=== PATIENT | male | born 1960 | race Caucasian/White ===

== ENCOUNTER → 2020-08-13 | Outpatient (CLI) | payer OTHER ==
--- NOTE | 2020-08-13 08:28 | RAD ---
INDICATION: Reason: ATTN PAROTID GLAND; DISEASE OF SALIVARY GLAND / Spl. Instructions: / History: COMPARISON: None. FINDINGS: Focused ultrasound images are obtained through the left parotid region. There are some small lymph nodes identified within the bilateral parotid region including one on the left measuring 9 x 6 mm with preserved fatty hilum. IMPRESSION: * Nonpathologic appearing lymph nodes are identified within the bilateral parotid gland without a d rainable fluid collection or worrisome mass. Electronically signed by: Travis Carr MD (08/13/2020 8:25 AM) [id number]
== END ==
LOC: US 07:39
PROVIDERS: ATTEND Family Medicine
DX: K11.9 Disease of salivary gland, unspecified (principal)
CPT/HCPCS: 76881

== ENCOUNTER 2021-02-08 11:51 | Emergency (ER) | payer OTHER ==
[~2021-02-08] VITALS: Ht 188 cm; Wt 127.2 kg
--- NOTE | 2021-02-08 14:08 | RAD ---
EXAM: PA and Lateral Views of the Chest DATE: 02/08/2021 1:50 PM INDICATION: Reason: COUGH, SHORTNESS OF BREATH HX ASTHMA, / Spl. Instructions: / History: COMPARISON: No Prior FINDINGS: The heart is not enlarged. Mediastinal and hilar contours are normal. No focal parenchymal airspace opacity. No pleural effusion or pneumothorax. IMPRESSION: 1. No radiographic evidence for acute cardiopulmonary process. Electronically signed by: Al López MD (02/08/2021 2:06 PM) [id number]
--- NOTE | 2021-02-08 14:22 | PHYS DOC ---
Past History Past Medical History: Asthma Past Surgical History: Other Additional Past Surgical Histo: shoulder surgery Alcohol Use: None Adult General Chief Complaint Chief Complaint: SHORTNESS OF BREATH HPI HPI Patient is a 60-year-old male presenting via POV for cough. This has been going on for last 2 weeks. Nothing known makes better or worse. Patient reports he has history of asthma but this is been at baseline, takes no inhalers but admits to taking daily allergy medications specifically Singulair as this typically triggers his asthma. He has had no recent exacerbations or attacks, no recent hospitalizations. Does admit he was seen by his primary care physician near symptom onset and was prescribed an unknown antibiotic which he reports had minimal relief in symptoms. States that he contacted his primary care physician today due to ongoing cough that has since turned productive with clear and yellow sputum, he was subsequently advised to transport to our facility for evaluation. On arrival, patient complains of continued productive cough. Also cites deep left-sided chest pressure that does not radiate. Nothing known makes better or worse. He has been taking all prescribed medications as scheduled. No personal history of cardiac disease, no ongoing tobacco alcohol or illicit drug use or history, no pertinent family history early cardiac disease reported Review of Systems Review of Systems Fourteen body systems of review of systems have been reviewed. See HPI for pertinent positives and negative responses, other stark all other systems are negative, non-pertinent or non-contributory Allergies Allergies Allergies Uncoded Allergies Type Severity Reaction Last Updated Verified PCN Allergy Unknown "bones itch" 02/08/21 Physical Exam Physical Exam Constitutional: Well developed, well nourished, no acute distress, non-toxic ap pearance. HENT: Normocephalic, atraumatic, bilateral external ears normal, oropharynx moist, no oral exudates, nose normal. Eyes: PERRLA, EOMI, conjunctiva normal, no discharge. Neck: Normal range of motion, no tenderness, supple, no stridor. Cardiovascular: Heart rate regular, sinus rhythm, no murmurs rubs or gallops Lungs & Thorax: Bilateral breath sounds clear to auscultation Abdomen: Bowel sounds normal, soft, no tenderness, no masses, no pulsatile masses. Nonsurgical abdomen, no peritoneal signs Skin: Warm, dry, no erythema, no rash. Back: No tenderness, no CVA tenderness. Extremities: No tenderness, no cyanosis, no clubbing, ROM intact, no edema. Neurologic: Alert and oriented X 3, grossly normal motor & sensory function, no focal deficits noted. Psychologic: Affect normal, judgement normal, mood normal. Current Patient Data Vital Signs Vital Signs Date Time Temp Pulse Resp B/P (MAP) Pulse Ox O2 Delivery O2 Flow Rate FiO2 02/08/21 13:22 98.1 111 20 134/105 (115) 97 Room Air Lab Results Laboratory Tests Test 02/08/21 14:10 02/08/21 14:20 White Blood Count 8.5 x10^3/uL Red Blood Count 4.88 x10^6/uL Hemoglobin 15.6 g/dL Hematocrit 45.9 % Mean Corpuscular Volume 94 fL Mean Corpuscular Hemoglobin 32 pg Mean Corpuscular Hemoglobin Concent 34 g/dL Red Cell Distribution Width 13.8 % Platelet Count 293 x10^3/uL Neutrophils (%) (Auto) 57 % Lymphocytes (%) (Auto) 25 % Monocytes (%) (Auto) 12 % Eosinophils (%) (Auto) 5 % Basophils (%) (Auto) 1 % Neutrophils # (Auto) 4.9 x10^3uL Lymphocytes # (Auto) 2.1 x10^3/uL Monocytes # (Auto) 1.0 x10^3/uL Eosinophils # (Auto) 0.4 x10^3/uL Basophils # (Auto) 0.1 x10^3/uL Sodium Level 142 mmol/L Potassium Level 4.1 mmol/L Chloride Level 104 mmol/L Carbon Dioxide Level 25 mmol/L Anion Gap 13 Blood Urea Nitrogen 17 mg/dL Creatinine 1.2 mg/dL Estimated GFR (Cockcroft-Gault) 62.0 Glucose Level 129 mg/dL Calcium Level 9.2 mg/dL Troponin I High Sensitivity 6 ng/L Coronavirus (COVID-19)(PCR) Not detected EKG EKG EKG ordered and interpreted by myself at 1430 hrs. as sinus rhythm at 95 bpm, unremarkable intervals, no axis deviation, no STEMI Radiology/Procedures Radiology/Procedures EXAM: PA and Lateral Views of the Chest DATE: 02/08/2021 1:50 PM INDICATION: Reason: COUGH, SHORTNESS OF BREATH HX ASTHMA, / Spl. Instructions: / History: COMPARISON: No Prior FINDINGS: The heart is not enlarged. Mediastinal and hilar contours are normal. No focal parenchymal airspace opacity. No pleural effusion or pneumothorax. IMPRESSION: 1. No radiographic evidence for acute cardiopulmonary process. Electronically signed by: Al López MD (02/08/2021 2:06 PM) [id number] Heart Score C/O Chest Pain: Yes HEART Score for Chest Pain: HEART Score for Chest Pain Response (Comments) Value History Slighlty/Non-Suspicious 0 ECG Normal 0 Age >45 - < 65 1 Risk Factors 1 or 2 Risk Factors 1 Troponin < Normal Limit 0 Total 2 Risk Factors: Risk Factors: DM, Current or recent (<one month) smoker, HTN, HLP, family history of CAD, obesity. Risk Scores: Risk Factors: DM, Current or recent (<one month) smoker, HTN, HLP, family history of CAD, obesity. Course & Med Decision Making Course & Med Decision Making ABCs unremarkable HPI physical exam and comprehensive ER work-up nonconcerning for any emergent or surgical issues Patient initial complaint was chronic cough status post recent viral infection. He has history of underlying asthma. I disclosed a cough like this might take 2 to 8 weeks after such infection to resolve especially with his history I discussed heart score and other risk stratification measures while in ER setting, patient reporting atypical chest pain but with that said I did disclose this might be an acute presentation of more concerning pathology and so I recommended admission but patient deferred As such, continued supportive care practices advised. He takes Singulair and Zyrtec daily, I discussed utility of Flonase if he has nasal congestion and/or rhinorrhea. Also prescribe patient Tessalon Perles for severe coughing episodes only Strict return precautions discussed with good understanding by patient, all questions and concerns addressed prior to ER departure Dragon Disclaimer Dragon Disclaimer This electronic medical record was generated, in whole or in part, using a voice recognition dictation system. Departure Departure: Impression: Primary Impression: Cough Disposition: HOME / SELF CARE / HOMELESS Condition: STABLE Referrals: JACK MANRIQUEZ MD (PCP) Patient Instructions: Cough, Adult Additional Instructions: You were seen in the Emergency Department for evaluation of a cough. Your chest x-ray was negative for any obvious cardiac/pulmonary etiology, however pathology may still exist. It is likely to be a viral condition, however you should follow up with your primary doctor for further evaluation. Coughing up blood, fever, and shortness of breath are examples of reasons to come back to the emergency department. Please return to the ED if you have new or worrisome symptoms. 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
--- NOTE | 2021-02-08 14:30 | EKG ---
[address] [address] Test Date: 2021-02-08 Test Time: 14:23:58 Pat Name: ANDERS PADGETT Department: Room: Gender: M Box Brander: TAYO : 1960 Requested By: ANDREAS MURILLO Order Number: [id number] Reading MD: Zaheer Benavides MD Measurements Intervals [place] Rate: 95 P: 62 NC: 186 QRS: -15 QRSD: 64 T: 26 QT: 354 QTc: 448 Interpretive Statements SINUS RHYTHM Electronically Signed On 02-10-2021 20:46:00 POCKET CUTTER by Zaheer Benavides MD
[2021-02-08 14:35] LABS: BASO # 0.1 x10^3/uL (0.0-0.2); BASO % 1 % (0-3); EOS # 0.4 x10^3/uL (0.0-0.7); EOS % 5 % (0-3); HEMATOCRIT 45.9 % (39.0-53.0); HEMOGLOBIN 15.6 g/dL (13.0-17.5); LYMPH # 2.1 x10^3/uL (1.0-4.8); LYMPH % 25 % (24-48); MEAN CORPUSCULAR HEMOGLOBIN 32 pg (25-35); MEAN CORPUSCULAR HGB CONC 34 g/dL (31-37); MEAN CORPUSCULAR VOLUME 94 fL (79-100); MONO % 12 % (0-9); NEUT # 4.9 x10^3uL (1.8-7.7); NEUT % 57 % (31-73); PLATELET COUNT 293 x10^3/uL (140-400); RED BLOOD COUNT 4.88 x10^6/uL (4.30-5.70); RED CELL DISTRIBUTION WIDTH 13.8 % (11.5-14.5); WHITE BLOOD COUNT 8.5 x10^3/uL (4.0-11.0)
[2021-02-08 14:40] LABS: CALCIUM 9.2 mg/dL (8.5-10.1); CREATININE 1.2 mg/dL (0.7-1.3); POTASSIUM 4.1 mmol/L (3.5-5.1)
[2021-02-08] MEDS ORDERED: BENZ200C47 PO (15:29)
[2021-02-08 15:36] VITALS: BP 117/67
== END 2021-02-08 15:38 | disposition home or self-care (01) ==
LOC: ER 11:51
DX: R05.9 Cough, unspecified (principal); J45.909 Unspecified asthma, uncomplicated; Z20.822 Contact with and (suspected) exposure to COVID-19
CPT/HCPCS: 36415; 71046; 80048; 84484; 85025; 93005; 99284; C9803; U0003

== ENCOUNTER 2021-02-27 17:50 | Emergency (ER) | payer OTHER ==
[~2021-02-27] VITALS: Ht 188 cm; Wt 120.6 kg
[~2021-02-27 17:50] MED LIST: BENZ200C47 PO
[2021-02-27] MEDS ORDERED: IV NORMAL SALINE 1,000ML 1,000 ML IV SCH (18:15)
--- NOTE | 2021-02-27 18:18 | PHYS DOC ---
Past History Past Medical History: Asthma (LILLIE STEVENS APRN) Past Surgical History: Other Additional Past Surgical Histo: shoulder surgery (LILLIE STEVENS APRN) Alcohol Use: None (LILLIE STEVENS APRN) General Adult EDM: Chief Complaint: FEVER HPI: HPI: Patient is a 60-year-old male who presents to the emergency department for fever and a productive cough for 2 months. He reports shortness of breath is worse with exertion, fatigue, nausea, vomiting, diarrhea. He reports that he begins coughing which causes him to gag and vomit. Patient was seen in this emergency department earlier this month and had negative Covid testing. Patient states that he is on an antibiotic for sinusitis. Patient states his temperature was 102 degrees today. He is afebrile in the emergency department. He has a history of asthma. He denies nausea currently, sick exposures, chest pain, urinary symptoms, blood in his stools or vomit. (LILLIE STEVENS APRN) Review of Systems: Review of Systems: 14 body systems of the review of systems have been reviewed. See HPI for pertinent positive and negative responses, otherwise all other systems are negative, nonpertinent or noncontributory (LILLIE STEVENS APRN) Allergies: Allergies: Allergies Coded Allergies Type Severity Reaction Last Updated Verified Penicillins Allergy Unknown 02/27/21 Yes (LILLIE STEVENS APRN) Physical Exam: PE: Constitutional: Well developed, well nourished, no acute distress, non-toxic appearance. [] HENT: Normocephalic, atraumatic, bilateral external ears normal, oropharynx moist, no oral exudates, nose normal. [] Eyes: PERRL, EOMI, conjunctiva normal, no discharge. [] Neck: Normal range of motion, no tenderness, supple, no stridor. [] Cardiovascular:Heart rate tachycardia rhythm, no murmur [] Lungs & Thorax: Bilateral breath sounds clear to auscultation [] Abdomen: Bowel sounds normal, soft, no tenderness, no masses, no pulsatile masses. [] Skin: Warm, dry, no erythema, no rash. [] Back: Normal range of motion Extremities: No tenderness, no cyanosis, no clubbing, ROM intact, no edema. [] Neurologic: Alert and oriented X 3, normal motor function, normal sensory function, no focal deficits noted. [] Psychologic: Affect normal, judgement normal, mood normal. [] (LILLIE STEVENS APRN) Current Patient Data: Labs: Laboratory Tests Test 02/27/21 18:36 02/27/21 18:37 White Blood Count 5.9 x10^3/uL Red Blood Count 4.63 x10^6/uL Hemoglobin 14.8 g/dL Hematocrit 42.6 % Mean Corpuscular Volume 92 fL Mean Corpuscular Hemoglobin 32 pg Mean Corpuscular Hemoglobin Concent 35 g/dL Red Cell Distribution Width 13.6 % Platelet Count 187 x10^3/uL Neutrophils (%) (Auto) 64 % Lymphocytes (%) (Auto) 23 % Monocytes (%) (Auto) 12 % Eosinophils (%) (Auto) 1 % Basophils (%) (Auto) 0 % Neutrophils # (Auto) 3.7 x10^3uL Lymphocytes # (Auto) 1.4 x10^3/uL Monocytes # (Auto) 0.7 x10^3/uL Eosinophils # (Auto) 0.1 x10^3/uL Basophils # (Auto) 0.0 x10^3/uL Sodium Level 140 mmol/L Potassium Level 4.1 mmol/L Chloride Level 104 mmol/L Carbon Dioxide Level 23 mmol/L Anion Gap 13 Blood Urea Nitrogen 17 mg/dL Creatinine 1.2 mg/dL Estimated GFR (Cockcroft-Gault) 62.0 BUN/Creatinine Ratio 14 Glucose Level 185 mg/dL Calcium Level 8.4 mg/dL Total Bilirubin 0.8 mg/dL Aspartate Amino Transf (AST/SGOT) 35 U/L Alanine Aminotransferase (ALT/SGPT) 32 U/L Alkaline Phosphatase 87 U/L Total Protein 7.0 g/dL Albumin 3.3 g/dL Albumin/Globulin Ratio 0.9 Influenza Type A (Rapid) Negative Influenza Type B (Rapid) Negative Current Medications Medications (Trade) Dose Ordered Sig/Gladys Route PRN Reason Start Time Stop Time Status Last Admin Dose Admin Sodium Chloride 1,000 ml @ 1,000 mls/hr Q1H IV 02/27/21 18:15 02/27/21 19:14 DC 02/27/21 18:35 Vital Signs: Vital Signs Date Time Temp Pulse Resp B/P (MAP) Pulse Ox O2 Delivery O2 Flow Rate FiO2 02/27/21 18:05 98.7 114 24 129/84 (99) 93 Room Air (LILLIE STEVENS PUMP SERVICER) EKG: EKG: [] Performed by ER staff and 1939 shows sinus rhythm rate of 93, QTC 440, no STEMI read by Dr. Topete (LILLIE STEVENS APRN) Radiology/Procedures: Radiology/Procedures: []PROCEDURE: PORTABLE CHEST 1V AP chest. HISTORY: Short of air, cough, history of asthma AP view was taken of the chest. Patient's not taken a deep inspiration. There is no effusion. There are no confluent infiltrates. IMPRESSION: 1. No acute chest disease. Electronically signed by: Brian Clemons MD (02/27/2021 6:25 PM) [facility] DICTATED AND SIGNED BY: BRIAN CLEMONS MD DATE: 02/27/211824 CC: JACK MANRIQUEZ MD; LILLIE STEVENS APRN ~MTH0 0 (LILLIE STEVENS APRN) Heart Score: C/O Chest Pain: N/A Risk Factors: Risk Factors: DM, Current or recent (<one month) smoker, HTN, HLP, family history of CAD, obesity. Risk Scores: Score 0 - 3: 2.5% MACE over next 6 weeks - Discharge Home Score 4 - 6: 20.3% MACE over next 6 weeks - Admit for Clinical Observation Score 7 - 10: 72.7% MACE over next 6 weeks - Early Invasive Strategies (LILLIE STEVENS APRN) Course & Med Decision Making: Course & Med Decision Making Pertinent Labs and Imaging studies reviewed. (See chart for details) [] Presents to the emergency department today for multiple complaints including fever, productive cough, nausea, vomiting, diarrhea, shortness of breath x2 months. Patient is currently on antibiotics for sinusitis but cannot member the name of medication, this is possibly contributing to his diarrhea. Patient is not reporting any nausea or vomiting currently. Work-up in the ER consisted of blood work, chest x-ray. Patient is mildly tachycardic in the emergency department and therefore was treated with a liter of normal saline. Patient's blood work was unremarkable. Patient had negative influenza testing. Chest x- ray showed no acute findings. asthma treated with steroid in ER. Patient advised to follow-up with his primary care provider. Patient's vital signs have improved and he is no longer tachycardic, no hypoxia noted, afebrile in the ER. Patient was road tested and did not become hypoxic, he states that he is most short of air with laying flat so he was laid flat for several minutes and his [id number] did not drop and he did not become hypoxic. Nonlabored breathing. Patient was discharged home with albuterol inhaler, cough medication. I discussed with patient all findings and diagnostic testing as well as the need to follow-up with PCP for further evaluation and treatment or return to the ER if any new or worsening symptoms. Strict return precautions were also discussed at length. Patient voiced understanding and agreement with the plan. Patient is hemodynamically stable at the time of disposition. (LILLIE STEVENS APRN) Dragon Disclaimer: Dragon Disclaimer: This electronic medical record was generated, in whole or in part, using a voice recognition dictation system. (LILLIE STEVENS APRN) Departure Departure: Impression: Primary Impression: Person under investigation for COVID-19 Disposition: HOME / SELF CARE / HOMELESS Condition: GOOD Referrals: JACK MANRIQUEZ MD (PCP) Patient Instructions: Cough, Adult, [id number] Additional Instructions: You were seen in the emergency department today for fever, cough, shortness of breath. Your blood work was unremarkable. Your chest x-ray showed no acute findings. Your influenza test was negative. We tested you in the emergency department for COVID-19 you will be notified of those results when they become available in approximately 2 days, please self isolate until you receive these results. Increase your fluids and rest. Take Tylenol and ibuprofen for your pain or fevers. You are being discharged home with albuterol inhaler that you can use as needed for shortness of breath. You are also being discharged home with a cough medication. I would advise you to purchase a pulse oximeter and monitor your oxygen saturations at home. Please return to the emergency department if your oxygen saturation drops below 90%. Please follow-up with your primary care provider tomorrow regarding your ER visit. Please return to the emergency department if you develop worsening of your shortness of breath, chest pain, high fevers refractory to treatment, intractable nausea or vomiting, weakness. Scripts Benzonatate (BENZONATATE) 200 Mg Capsule 1 CAP PO PRN TID PRN for cough for 7 Days, #21 CAP 0 Refills Prov: RODNEYLILLIE Holloway PUMP SERVICER 02/27/21 Albuterol Sulfate (PROAIR HFA INHALER) 8.5 Gm Hfa.aer.ad 2 PUFF IH PRN Q4-6HRS PRN for wheezing for 21 Days, #1 INHALER 0 Refills as needed for wheezing Prov: RODNEYLILLIE Holloway PUMP SERVICER 02/27/21 Dragon Disclaimer This chart was dictated in whole or in part using Voice Recognition software in a busy, high-work load, and often noisy Emergency Department environment. It may contain unintended and wholly unrecognized errors or omissions. (ROSALES TOPETE MD) Attending Signature Attending Signature I have participated in the care of this patient and I have reviewed and agree with all pertinent clinical information above including history, exam, and recommendations. (ROSALES TOPETE MD) LILLIE STEVENS PUMP SERVICER Feb 27, 2021 18:17 ROSALES TOPETE MD Feb 28, 2021 19:04
--- NOTE | 2021-02-27 18:28 | RAD ---
AP chest. HISTORY: Short of air, cough, history of asthma AP view was taken of the chest. Patient's not taken a deep inspiration. There is no effusion. There a re no confluent infiltrates. IMPRESSION: 1. No acute chest disease. Electronically signed by: Brian Clemnos MD (02/27/2021 6:25 PM) [facility]
[2021-02-27 18:57] LABS: BASO % 0 % (0-3); EOS # 0.1 x10^3/uL (0.0-0.7); EOS % 1 % (0-3); HEMATOCRIT 42.6 % (39.0-53.0); HEMOGLOBIN 14.8 g/dL (13.0-17.5); LYMPH # 1.4 x10^3/uL (1.0-4.8); LYMPH % 23 % (24-48); MEAN CORPUSCULAR HEMOGLOBIN 32 pg (25-35); MEAN CORPUSCULAR HGB CONC 35 g/dL (31-37); MEAN CORPUSCULAR VOLUME 92 fL (79-100); MONO # 0.7 x10^3/uL (0.0-1.1); MONO % 12 % (0-9); NEUT # 3.7 x10^3uL (1.8-7.7); NEUT % 64 % (31-73); PLATELET COUNT 187 x10^3/uL (140-400); RED BLOOD COUNT 4.63 x10^6/uL (4.30-5.70); RED CELL DISTRIBUTION WIDTH 13.6 % (11.5-14.5); WHITE BLOOD COUNT 5.9 x10^3/uL (4.0-11.0)
[2021-02-27 19:06] LABS: CALCIUM 8.4 mg/dL (8.5-10.1); CREATININE 1.2 mg/dL (0.7-1.3); POTASSIUM 4.1 mmol/L (3.5-5.1)
[2021-02-27 19:10] LABS: INFLUENZA A PATIENT NEGATIVE (NEGATIVE); INFLUENZA B PATIENT NEGATIVE (NEGATIVE)
[2021-02-27 19:12] LABS: ALBUMIN 3.3 g/dL (3.4-5.0); ALBUMIN/GLOBULIN RATIO 0.9 (1.0-1.7); TOTAL BILIRUBIN 0.8 mg/dL (0.2-1.0)
[2021-02-27] MEDS ORDERED: ALBU2.5V8 IH (19:30)
[2021-02-27] MEDS ORDERED: methylPREDNISolone SOD SUCC PF 125 MG/2 ML VIAL. IV ONE (19:30)
[2021-02-27] MEDS ORDERED: PRED20TA PO (19:30)
[2021-02-27] MEDS ORDERED: BENZ200C47 PO (19:30)
[2021-02-27 20:03] VITALS: BP 131/78
[2021-02-27 20:05] LABS: BACTERIA,URINE 0 /HPF (0-FEW); BILIRUBIN,URINE SMALL (NEG); CLARITY,URINE CLEAR; COLOR,URINE YELLOW; GLUCOSE,URINE NEG (NEG); NITRITE,URINE NEG (NEG); RBC,URINE 0 /HPF (0-2); SQUAMOUS EPITHELIAL CELL,UR OCC /LPF; UROBILINOGEN,URINE 0.2 mg/dL (0.2 mg/dL); WBC,URINE OCC /HPF (0-4)
--- NOTE | 2021-02-28 02:46 | EKG ---
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
== END 2021-02-27 20:29 | disposition home or self-care (01) ==
LOC: ER 17:50
DX: U07.1 COVID-19 (principal); J45.909 Unspecified asthma, uncomplicated; Z88.0 Allergy status to penicillin
CPT/HCPCS: 71045; 80053; 81001; 85025; 87804; 93005; 96361; 96374; 99285; C9803; J2930; J7030; U0003

== ENCOUNTER 2021-03-18 06:15 | Emergency (ER) | payer MEDICARE, OTHER ==
[~2021-03-18] VITALS: Ht 188 cm; Wt 122.0 kg
[~2021-03-18 06:15] MED LIST changes: +ALBU2.5V8 IH; +PRED20TA PO
--- NOTE | 2021-03-18 06:50 | EKG ---
[address] [address] Test Date: 2021-03-18 Test Time: 06:31:03 Pat Name: ANDERS PADGETT Department: Room: Gender: M Senior Wealth Advisor: ??? 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
--- NOTE | 2021-03-18 06:55 | PHYS DOC ---
Past History Past Medical History: Asthma Past Surgical History: Other Additional Past Surgical Histo: shoulder surgery Alcohol Use: None General Adult EDM: Chief Complaint: SHORTNESS OF BREATH HPI: HPI: 60-year-old male presents with continued shortness of breath. Patient has been seen in this emergency room few times. He was diagnosed with COVID-19 at one point about a month ago. Patient presents this morning because he has a persistent cough that has led to central chest pain and shortness of breath. He tells me that he is coughing so hard he has abdominal cramping. He has tried aeje-pps-fhocait medications as well as Tessalon Perles. He is not sure what else to do. Denies fever or chills. Review of Systems: Review of Systems: Constitutional: Denies fever or chills Eyes: Denies change in visual acuity HENT: Denies nasal congestion or sore throat Respiratory: Cough with shortness of breath Cardiovascular: Chest pain GI: Denies abdominal pain, nausea, vomiting, bloody stools or diarrhea : Denies dysuria Musculoskeletal: Denies back pain or joint pain Integument: Denies rash Neurologic: Denies headache, focal weakness or sensory changes Endocrine: Denies polyuria or polydipsia Lymphatic: Denies swollen glands Psychiatric: Denies depression or anxiety Allergies: Allergies: Allergies Coded Allergies Type Severity Reaction Last Updated Verified Penicillins Allergy Unknown 02/27/21 Yes Physical Exam: PE: Constitutional: Well developed, well nourished, obese, no acute distress, non- toxic appearance. [] HENT: Normocephalic, atraumatic, bilateral external ears normal, oropharynx moist, no oral exudates, nose normal. [] Eyes: PERRLA, EOMI, conjunctiva normal, no discharge. [] Neck: Normal range of motion, no tenderness, supple, no stridor. [] Cardiovascular: Heart rate regular rhythm, no murmur [] Lungs & Thorax: Bilateral breath sounds clear to auscultation [] Abdomen: Bowel sounds normal, soft, no tenderness, no masses, no pulsatile masses. [] Skin: Warm, dry, no erythema, no rash. [] Back: No tenderness, no CVA tenderness. [] Extremities: No tenderness, no cyanosis, no clubbing, ROM intact, no edema. [] Neurologic: Alert and oriented X 3, normal motor function, normal sensory function, no focal deficits noted. [] Psychologic: Affect normal, judgement normal, mood normal. [] Current Patient Data: Vital Signs: Vital Signs Date Time Temp Pulse Resp B/P (MAP) Pulse Ox O2 Delivery O2 Flow Rate FiO2 03/18/21 06:26 98.0 120 24 131/78 (95) 96 EKG: EKG: Sinus rhythm, rate 112, leftward axis, no ST elevation or depression. [] Radiology/Procedures: Radiology/Procedures: [] Impressions: CTA chest with contrast dated 03/18/2021. COMPARISON: None. Clinical data indication: Tachycardia and shortness of breath. Covid 19. TECHNIQUE: Contiguous axial imaging the chest performed following the bolus administration of 150 cc Omnipaque 350. Initial injection was missed timed and repeat injection was performed. Thin cut coronal MIPS reconstructions using PE protocol One or more of the following individualized dose reduction techniques were uti lized for this examination: 1. Automated exposure control 2. Adjustment of the mA and/or kV according to patient size 3. Use of iterative reconstruction technique FINDINGS: Study is somewhat limited due to diminished contrast bolus. No evidence of central, main lobar or proximal segmental pulmonary embolus. Distal segmental and subsegmental branches are not well evaluated based on technique. Heart size is within normal limits. No pericardial effusion. Coronary artery calcifications. There are mildly enlarged right paratracheal, subcarinal and bilateral hilar lymph nodes measuring up to 1.4 cm short axis. No axillary or supraclavicular lymphadenopathy. Thyroid gland is unremarkable. Central airways are patent. Patchy groundglass opacity at the dependent lower lobes with mild peripheral patchy groundglass density in the right upper lobe. No significant pleural effusion. Limited images of the upper abdomen are unremarkable. No acute bony abnormality. Multilevel spondylosis. IMPRESSION: 1. Limited exam. No evidence of central, lobar or proximal segmental pulmonary embolus. Distal segmental and subsegmental branches are not well evaluated based on technique. 2. Mild bilateral airspace disease, likely related to history of Covid 19 pneumonitis. 3. Mild mediastinal and bilateral hilar lymphadenopathy, likely reactive. 4. Coronary artery calcifications. Electronically signed by: Adriano Ho MD (03/18/2021 8:05 AM) [facility] DICTATED AND SIGNED BY: ADRIANO HO MD DATE: 03/18/21 0753 CC: JACK MANRIQUEZ MD; LIZA BRUNSON DO ~MTH0 0 Heart Score: C/O Chest Pain: Yes HEART Score for Chest Pain: HEART Score for Chest Pain Response (Comments) Value History Slighlty/Non-Suspicious 0 ECG Nonspecific Repolarizatio 1 Age >45 - < 65 1 Risk Factors 1 or 2 Risk Factors 1 Troponin < Normal Limit 0 Total 3 Risk Factors: Risk Factors: DM, Current or recent (<one month) smoker, HTN, HLP, family history of CAD, obesity. Risk Scores: Score 0 - 3: 2.5% MACE over next 6 weeks - Discharge Home Score 4 - 6: 20.3% MACE over next 6 weeks - Admit for Clinical Observation Score 7 - 10: 72.7% MACE over next 6 weeks - Early Invasive Strategies Course & Med Decision Making: Course & Med Decision Making Pertinent Labs and Imaging studies reviewed. (See chart for details) The patient's labs are unremarkable. His CT angiogram of the chest shows no pulmonary embolus. There is some evidence of bilateral infiltrates consistent with history of COVID-19. I will discharge the patient with guaifenesin codeine cough syrup and supportive care. He is stable for discharge at this time. [] Dragon Disclaimer: Dragon Disclaimer: This electronic medical record was generated, in whole or in part, using a voice recognition dictation system. Departure Departure: Impression: Primary Impression: Pneumonia due to COVID-19 virus Disposition: HOME / SELF CARE / HOMELESS Condition: STABLE Referrals: JACK MANRIQUEZ MD (PCP) Patient Instructions: Pneumonia, Adult, Gaip-af-Tfug Scripts Guaifenesin/Codeine Phosphate (GUAIFENESIN-CODEINE SYRUP) 118 Ml Liquid 5 ML PO Q6HRS PRN for COUGH, #120 ML Prov: LIZA BRUNSON DO 03/18/21 LIZA BRUNSON DO Mar 18, 2021 06:55
[2021-03-18] MEDS ORDERED: IOHEXOL 350 MG/ML 100 ML VIAL. IV ONE (07:15)
[2021-03-18] MEDS ORDERED: IV NORMAL SALINE 1,000ML 1,000 ML IV ONE (07:15)
[2021-03-18 07:27] LABS: BASO # 0.1 x10^3/uL (0.0-0.2); BASO % 1 % (0-3); EOS # 0.7 x10^3/uL (0.0-0.7); EOS % 9 % (0-3); HEMATOCRIT 41.1 % (39.0-53.0); LYMPH # 1.4 x10^3/uL (1.0-4.8); LYMPH % 18 % (24-48); MEAN CORPUSCULAR HEMOGLOBIN 32 pg (25-35); MEAN CORPUSCULAR HGB CONC 34 g/dL (31-37); MEAN CORPUSCULAR VOLUME 93 fL (79-100); MONO # 0.8 x10^3/uL (0.0-1.1); MONO % 10 % (0-9); NEUT % 62 % (31-73); PLATELET COUNT 231 x10^3/uL (140-400); RED BLOOD COUNT 4.41 x10^6/uL (4.30-5.70); RED CELL DISTRIBUTION WIDTH 13.9 % (11.5-14.5)
[2021-03-18 07:36] LABS: CREATININE 1.1 mg/dL (0.7-1.3); GFR 68.5; POTASSIUM 4.4 mmol/L (3.5-5.1)
[2021-03-18 07:41] LABS: ALBUMIN 3.6 g/dL (3.4-5.0); ALBUMIN/GLOBULIN RATIO 1.3 (1.0-1.7); TOTAL BILIRUBIN 0.6 mg/dL (0.2-1.0); TOTAL PROTEIN 6.3 g/dL (6.4-8.2)
[2021-03-18] MEDS ORDERED: guaiFENesin/CODEINE 100mg/10mg 5 ML LIQUID PO STA (07:45)
--- NOTE | 2021-03-18 08:06 | RAD ---
Exam Date: 03/18/2021 7:45 AM XR CHEST 1V Indication: Reason: SHORTNESS OF BREATH, TACHYCARDIA, COVID X 4 WEEKS AGO, LOW 02 / Spl. Instructions : / History: . Comparison: February 27, 2021 FINDINGS/ IMPRESSION: Mild right basilar subsegmental atelectasis and/or scarring persists. The cardiac silhouette and pulmonary vasculature are within normal limits. There is no pleural effusion or pneumothorax. The visualized osseous structures are intact. Electronically signed by: Chapo Martin MD (03/18/2021 8:03 AM) [facility]
--- NOTE | 2021-03-18 08:08 | RAD ---
CTA chest with contrast dated 03/18/2021. COMPARISON: None. Clinical data indication: Tachycardia and shortness of breath. Covid 19. TECHNIQUE: Contiguous axial imaging the chest performed following the bolus administration of 150 cc Omnipaque 3 50. Initial injection was missed timed and repeat injection was performed. Thin cut coronal MIPS jennifer nstructions using PE protocol One or more of the following individualized dose reduction techniques were utilized for this examinat ion: 1. Automated exposure control 2. Adjustment of the mA and/or kV according to patient size 3. Use of iterative reconstruction technique FINDINGS: Study is somewhat limited due to diminished contrast bolus. No evidence of central, main lobar or pro ximal segmental pulmonary embolus. Distal segmental and subsegmental branches are not well evaluated based on technique. Heart size is within normal limits. No pericardial effusion. Coronary artery calcifications. There ar e mildly enlarged right paratracheal, subcarinal and bilateral hilar lymph nodes measuring up to 1.4 cm short axis. No axillary or supraclavicular lymphadenopathy. Thyroid gland is unremarkable. Central airways are patent. Patchy groundglass opacity at the dependent lower lobes with mild periphe ral patchy groundglass density in the right upper lobe. No significant pleural effusion. Limited images of the upper abdomen are unremarkable. No acute bony abnormality. Multilevel spondylos is. IMPRESSION: 1. Limited exam. No evidence of central, lobar or proximal segmental pulmonary embolus. Distal segmen jose a and subsegmental branches are not well evaluated based on technique. 2. Mild bilateral airspace disease, likely related to history of Covid 19 pneumonitis. 3. Mild mediastinal and bilateral hilar lymphadenopathy, likely reactive. 4. Coronary artery calcifications. Electronically signed by: Raji Ho MD (03/18/2021 8:05 AM) [facility]
[2021-03-18] MEDS ORDERED: GUAI118L13 PO (08:18)
[2021-03-18 08:25] VITALS: BP 150/84
== END 2021-03-18 08:32 | disposition home or self-care (01) ==
LOC: ER 06:15
DX: U07.1 COVID-19 (principal); J12.82 Pneumonia due to coronavirus disease 2019; J45.909 Unspecified asthma, uncomplicated; Z88.0 Allergy status to penicillin
CPT/HCPCS: 36415; 71045; 71275; 80053; 84484; 85025; 93005; 96360; 99285; J7030; Q9967

== ENCOUNTER 2021-03-26 00:49 | Emergency (ER) | payer MEDICARE ==
[~2021-03-26] VITALS: Ht 188 cm; Wt 122.0 kg
[~2021-03-26 00:49] MED LIST changes: +GUAI118L13 PO
--- NOTE | 2021-03-26 01:10 | PHYS DOC ---
Past History Past Medical History: Asthma Past Medical History COVID Infection Past Surgical History: No Surgical History Additional Past Surgical Histo: shoulder surgery Alcohol Use: None General Adult EDM: Chief Complaint: RAPID HEART RATE HPI: HPI: ".. I was having really fast heart.rate.. I think the nurse scared me out of it..." Patient is a 60 year old male who presents with above hx and complaints of dyspnea and tachycardia. Patient does drink a pot of coffee today. No other illicit drugs. No other history energy drinks. Patient did have COVID in February. Patient does have a family history of DVTs and coagulopathy. Patient himself has never had a DVT or pulmonary embolism. Patient denies any cardiac disorders. Patient is longstanding diabetic, and a history of asthma.. Pt. follows with Dr. Wyatt. Review of Systems: Review of Systems: Constitutional: Denies fever or chills Eyes: Denies change in visual acuity HENT: Denies nasal congestion or sore throat Respiratory: Hx. of non- productive cough Cardiovascular: Complains of tachycardia GI: Denies abdominal pain, nausea, vomiting, bloody stools or diarrhea : Denies dysuria Musculoskeletal: Denies back pain or joint pain Integument: Denies rash Neurologic: Denies headache, focal weakness or sensory changes Endocrine: Denies polyuria or polydipsia Lymphatic: Denies swollen glands Psychiatric: Denies depression or anxiety Family History: Family History: Coagulopathy with mother Current Medications: Current Meds: See nursing for home meds Allergies: Allergies: Allergies Coded Allergies Type Severity Reaction Last Updated Verified Penicillins Allergy Unknown 02/27/21 Yes Physical Exam: PE: Constitutional: no acute distress, non-toxic appearance. [] HENT: Normocephalic, atraumatic, bilateral external ears normal, oropharynx moist, no oral exudates, nose normal. [] Eyes: PERRLA, EOMI, conjunctiva normal, no discharge. [] Neck: Normal range of motion, no tenderness, supple, no stridor. [] Cardiovascular: Tachycardia heart rate regular rhythm, no murmur [] Lungs & Thorax: Bilateral breath sounds apex on auscultation [] Abdomen: Bowel sounds normal, soft, no tenderness, no masses, no pulsatile masses. [Port for diabetic right lower abdomen Skin: Warm, dry, no erythema, no rash. [] Back: No tenderness, no CVA tenderness. [] Extremities: No tenderness, no cyanosis, no clubbing, ROM intact, no edema. No cording appreciated Neurologic: Alert and oriented X 3, normal motor function, normal sensory func tion, no focal deficits noted. [] Psychologic: Affect anxious, judgement normal, mood normal. [] Current Patient Data: Vital Signs: Vital Signs Date Time Temp Pulse Resp B/P (MAP) Pulse Ox O2 Delivery O2 Flow Rate FiO2 03/26/21 00:59 97.9 126 26 127/77 (94) 95 Room Air EKG: EKG: My interpretation EKG shows a sinus tachycardia 117 bpm. Time of EKG is 109 hours. Does have some mild left axis changes. But no findings acute STEMI of contralateral changes [] Radiology/Procedures: Radiology/Procedures: [[place] [address] IMAGING REPORT Signed PATIENT: ANDERS PADGETT ACCOUNT: [id number] : 1960 LOCATION: ER AGE: 60 SEX: M EXAM STATUS: REG ER ORD. PHYSICIAN: ROSALES FERMIN MD REASON: Tachy, dyspnea, elev. D-dimerm, Hx.COVID Omni 350 100cc PROCEDURE: CT ANGIOGRAPHY CHEST CTA chest with contrast dated 03/26/2021. COMPARISON: 03/18/2021 CLINICAL INDICATION: Elevated d-dimer and dyspnea. Possible pulmonary embolus. Covid 19. TECHNIQUE: Contiguous axial imaging the chest performed following the intravenous demonstration of 100 cc Omnipaque 350. Study was performed as dedicated PE protocol with thin cut coronal MIPS 3-D reconstruction. One or more of the following individualized dose reduction techniques were utilized for this examination: 1. Automated exposure control 2. Adjustment of the mA and/or kV according to patient size 3. Use of iterative reconstruction technique. FINDINGS: Contrast bolus is adequate. No evidence of central, lobar or segmental pulmonary embolus. Subsegmental branches are not well evaluated based on technique. Heart size within normal limits. No pericardial effusion. Coronary artery calcifications. Mildly enlarged subcarinal lymph node measuring 1.1 cm short axis. There are also borderline enlarged prevascular and bilateral hilar lymph nodes. No axillary or supraclavicular lymphadenopathy. Thyroid gland is unremarkable. Central airways are patent. Mild patchy groundglass opacity in the bilateral lower lobes. There is also minimal groundglass opacity in the right upper lobe. No pleural effusion. No pneumothorax. Findings are improved from prior study. Limited images of the upper abdomen are unremarkable. No acute bony abnormality. Multilevel spondylosis. IMPRESSION: 1. No evidence of central, lobar or segmental pulmonary embolus. 2. Mild improvement in bilateral airspace disease, possibly related to history of Covid 19 pneumonitis. 3. Mild mediastinal and bilateral hilar lymphadenopathy, likely reactive. Electronically signed by: Raji Ho MD (03/26/2021 3:23 AM) [facility] DICTATED AND SIGNED BY: RAJI HO MD DATE: 03/26/21318 CC: JACK WYATT MD; ROSALES FERMIN MD ~MTH0 0 [facility] [address] [place] [id number] IMAGING REPORT Signed PATIENT: ANDERS PADGETT ACCOUNT: [id number] : 1960 LOCATION: ER AGE: 60 SEX: M EXAM STATUS: REG ER ORD. PHYSICIAN: ROSALES FERMIN MD REASON: tachy PROCEDURE: PORTABLE CHEST 1V Single view chest dated 03/26/2021 1:53 AM: COMPARISON: 03/18/2021 Clinical Indication: Tachycardia. Findings: Single upright portable exam of the chest was performed. Heart size and mediastinal contours are within normal limits. Lungs are clear. No consolidation or pleural effusion. No pneumothorax. There are some prominent perihilar linear markings, unchanged. IMPRESSION: No acute radiographic abnormality. Stable findings compared to 03/18/2021. Electronically signed by: Raji Ho MD (03/26/2021 1:54 AM) [facility] DICTATED AND SIGNED BY: RAJI HO MD DATE: 03/26/21152 CC: JACK WYATT MD; ROSALES FERMIN MD ~MTH0 0 ] IMAGING REPORT Signed PATIENT: ANDERS APDGETT ACCOUNT: [id number] : 1960 LOCATION: ER AGE: 60 SEX: M EXAM STATUS: REG ER ORD. PHYSICIAN: ROSALES FERMIN MD REASON: tachy PROCEDURE: PORTABLE CHEST 1V Single view chest dated 03/26/2021 1:53 AM: COMPARISON: 03/18/2021 Clinical Indication: Tachycardia. Findings: Single upright portable exam of the chest was performed. Heart size and mediastinal contours are within normal limits. Lungs are clear. No consolidation or pleural effusion. No pneumothorax. There are some prominent perihilar linear markings, unchanged. IMPRESSION: No acute radiographic abnormality. Stable findings compared to 03/18/2021. Electronically signed by: Raji Ho MD (03/26/2021 1:54 AM) [facility] [place] DICTATED AND SIGNED BY: RAJI HO MD DATE: 03/26/21 0153 CC: JACK WYATT MD; ROSALES FERMIN MD ~MTH0 0 Heart Score: C/O Chest Pain: No HEART Score for Chest Pain: HEART Score for Chest Pain Response (Comments) Value History Slighlty/Non-Suspicious 0 ECG Nonspecific Repolarizatio 1 Age >45 - < 65 1 Risk Factors 1 or 2 Risk Factors 1 Total 3 Risk Factors: Risk Factors: DM, Current or recent (<one month) smoker, HTN, HLP, family history of CAD, obesity. Risk Scores: Score 0 - 3: 2.5% MACE over next 6 weeks - Discharge Home Score 4 - 6: 20.3% MACE over next 6 weeks - Admit for Clinical Observation Score 7 - 10: 72.7% MACE over next 6 weeks - Early Invasive Strategies Course & Med Decision Making: Course & Med Decision Making Pertinent Labs and Imaging studies reviewed. (See chart for details) Increase breathing treatments to 4 x day. MDI or nebulizer. Take Prednisone 50 mg daily x 5 days. Follow up with primary. Push fluids. Take daily aspirin. Follow-up with Dr. Wyatt. Consider outpatient stress testing. Return if any concerns. Impression: 1.Tachycardia 2. Hx. COVID infection 02/26 3. DM 4. HTN Hx. 5. Asthma Hx [] Dragon Disclaimer: Dragon Disclaimer: This electronic medical record was generated, in whole or in part, using a voice recognition dictation system. Departure Departure: Referrals: JACK WYATT MD (PCP) Scripts Prednisone (PREDNISONE) 50 Mg Tablet 50 MG PO DAILY for reactive airway for 5 Days, #5 TAB Prov: ROSALES FERMIN MD 03/26/21 [place] Disclaimer This chart was dictated in whole or in part using Voice Recognition software in a busy, high-work load, and often noisy Emergency Department environment. It may contain unintended and wholly unrecognized errors or omissions. Dragon Disclaimer This chart was dictated in whole or in part using Voice Recognition software in a busy, high-work load, and often noisy Emergency Department environment. It may contain unintended and wholly unrecognized errors or omissions. Dragon Disclaimer This chart was dictated in whole or in part using Voice Recognition software in a busy, high-work load, and often noisy Emergency Department environment. It may contain unintended and wholly unrecognized errors or omissions. ROSALES FERMIN MD Mar 26, 2021 01:10
[2021-03-26] MEDS ORDERED: ALBUTEROL SULFATE 8GM INHALER. INH ONE (01:30)
--- NOTE | 2021-03-26 01:57 | RAD ---
Single view chest dated 03/26/2021 1:53 AM: COMPARISON: 03/18/2021 Clinical Indication: Tachycardia. Findings: Single upright portable exam of the chest was performed. Heart size and mediastinal contours are with in normal limits. Lungs are clear. No consolidation or pleural effusion. No pneumothorax. There are s ome prominent perihilar linear markings, unchanged. IMPRESSION: No acute radiographic abnormality. Stable findings compared to 03/18/2021. Electronically signed by: Raji Ho MD (03/26/2021 1:54 AM) [facility]
[2021-03-26] MEDS ORDERED: IV RINGERS SOLUTION,LACTATED 1,000 ML IV SCH (02:00)
[2021-03-26 02:17] LABS: CALCIUM 8.8 mg/dL (8.5-10.1); CREATININE 1.2 mg/dL (0.7-1.3); POTASSIUM 3.9 mmol/L (3.5-5.1)
[2021-03-26 02:18] LABS: BASO # 0.1 x10^3/uL (0.0-0.2); BASO % 1 % (0-3); EOS # 1.2 x10^3/uL (0.0-0.7); EOS % 12 % (0-3); HEMATOCRIT 43.5 % (39.0-53.0); LYMPH # 1.7 x10^3/uL (1.0-4.8); LYMPH % 18 % (24-48); MEAN CORPUSCULAR HEMOGLOBIN 32 pg (25-35); MEAN CORPUSCULAR HGB CONC 35 g/dL (31-37); MEAN CORPUSCULAR VOLUME 93 fL (79-100); MONO % 10 % (0-9); NEUT # 5.7 x10^3uL (1.8-7.7); NEUT % 59 % (31-73); PLATELET COUNT 234 x10^3/uL (140-400); RED CELL DISTRIBUTION WIDTH 13.9 % (11.5-14.5); WHITE BLOOD COUNT 9.6 x10^3/uL (4.0-11.0)
[2021-03-26 02:29] LABS: ALBUMIN 3.9 g/dL (3.4-5.0); DIRECT BILIRUBIN 0.1 mg/dL (0.0-0.2); MAGNESIUM 2.1 mg/dL (1.8-2.4); TOTAL BILIRUBIN 0.5 mg/dL (0.2-1.0); TOTAL PROTEIN 6.9 g/dL (6.4-8.2)
[2021-03-26 02:41] LABS: AMPHETAMINE/METHAMPHETAMINE NEG (NEG); BARBITURATES NEG (NEG); BENZODIAZEPINES NEG (NEG); CANNABINOIDS NEG (NEG); COCAINE NEG (NEG); METHADONE NEG (NEG); OPIATES POS (NEG); PHENCYCLIDINE NEG (NEG)
[2021-03-26 02:45] LABS: BILIRUBIN,URINE NEG (NEG); CLARITY,URINE CLEAR; COLOR,URINE YELLOW; GLUCOSE,URINE 100 mg/dL (NEG)
[2021-03-26 02:46] LABS: BACTERIA,URINE 0 /HPF (0-FEW); NITRITE,URINE NEG (NEG); RBC,URINE 0 /HPF (0-2); SQUAMOUS EPITHELIAL CELL,UR OCC /LPF; UROBILINOGEN,URINE 0.2 mg/dL (0.2 mg/dL)
[2021-03-26 02:54] LABS: INFLUENZA A PATIENT NEGATIVE (NEGATIVE); INFLUENZA B PATIENT NEGATIVE (NEGATIVE)
[2021-03-26] MEDS ORDERED: CONTRAST GIVEN. MC PRN (03:00)
[2021-03-26] MEDS ORDERED: IV RINGERS SOLUTION,LACTATED 1,000 ML IV ONE (03:00)
--- NOTE | 2021-03-26 03:26 | RAD ---
CTA chest with contrast dated 03/26/2021. COMPARISON: 03/18/2021 CLINICAL INDICATION: Elevated d-dimer and dyspnea. Possible pulmonary embolus. Covid 19. TECHNIQUE: Contiguous axial imaging the chest performed following the intravenous demonstration of 100 cc Omnipa que 350. Study was performed as dedicated PE protocol with thin cut coronal MIPS 3-D reconstruction. One or more of the following individualized dose reduction techniques were utilized for this examinat ion: 1. Automated exposure control 2. Adjustment of the mA and/or kV according to patient size 3. Use of iterative reconstruction technique. FINDINGS: Contrast bolus is adequate. No evidence of central, lobar or segmental pulmonary embolus. Subsegmenta l branches are not well evaluated based on technique. Heart size within normal limits. No pericardial effusion. Coronary artery calcifications. Mildly enla rged subcarinal lymph node measuring 1.1 cm short axis. There are also borderline enlarged prevascula r and bilateral hilar lymph nodes. No axillary or supraclavicular lymphadenopathy. Thyroid gland is u nremarkable. Central airways are patent. Mild patchy groundglass opacity in the bilateral lower lobes. There is al so minimal groundglass opacity in the right upper lobe. No pleural effusion. No pneumothorax. Finding s are improved from prior study. Limited images of the upper abdomen are unremarkable. No acute bony abnormality. Multilevel spondylos is. IMPRESSION: 1. No evidence of central, lobar or segmental pulmonary embolus. 2. Mild improvement in bilateral airspace disease, possibly related to history of Covid 19 pneumoniti s. 3. Mild mediastinal and bilateral hilar lymphadenopathy, likely reactive. Electronically signed by: Raji Ho MD (03/26/2021 3:23 AM) [facility]
[2021-03-26] MEDS ORDERED: IOHEXOL 350 MG/ML 100 ML VIAL. IV ONE (03:30)
[2021-03-26] MEDS ORDERED: PRED50TA PO (03:39)
[2021-03-26 04:00] VITALS: BP 141/72
[2021-03-26] MEDS ORDERED: predniSONE 10 MG TABLET. PO ONE (04:00)
--- NOTE | 2021-03-26 04:27 | EKG ---
[address] [address] Test Date: 2021-03-26 Test Time: 01:07:36 Pat Name: ANDERS PADGETT Department: Room: Gender: M Operations Trainer: LORIN : 1960 Requested By: ROSALES FERMIN Order Number: [id number] Reading MD: Zaheer Benavides MD Measurements Intervals [place] Rate: 116 P: 87 DC: 190 QRS: -10 QRSD: 64 T: 36 QT: 306 QTc: 431 Interpretive Statements SINUS TACHYCARDIA Electronically Signed On 03-28-2021 8:49:19 MACHINE JOINT CUTTER by Zaheer Benavides MD
--- NOTE | 2021-03-26 04:29 | EKG ---
[address] [address] Test Date: 2021-03-26 Test Time: 01:09:58 Pat Name: ANDERS PADGETT Department: Room: Gender: M Editorial Manager: LORIN : 1960 Requested By: ROSALES FERMIN Order Number: [id number] Reading MD: Zaheer Benavides MD Measurements Intervals Lane Rate: 117 P: 65 KS: 186 QRS: -16 QRSD: 68 T: 47 QT: 312 QTc: 439 Interpretive Statements SINUS TACHYCARDIA Electronically Signed On 03-28-2021 8:49:12 CHIEF PAYROLL CLERK by Zaheer Benavides MD
== END 2021-03-26 04:10 | disposition home or self-care (01) ==
LOC: ER 00:49
DX: R00.0 Tachycardia, unspecified (principal); R06.00 Dyspnea, unspecified; R05.9 Cough, unspecified; E11.9 Type 2 diabetes mellitus without complications; I10 Essential (primary) hypertension; J45.909 Unspecified asthma, uncomplicated; Z20.822 Contact with and (suspected) exposure to COVID-19; Z86.16 Personal history of COVID-19; Z88.0 Allergy status to penicillin
CPT/HCPCS: 36415; 71045; 71275; 80048; 80076; 80307; 81001; 82550; 83690; 83735; 83880; 84443; 84484; 85025; 85379; 85610; 85730; 87428; 93005; 94640; 96360; 96361; 99285; J7120; J7512; Q9967; 87426; 87804; 94664

== ENCOUNTER → 2021-04-08 | Outpatient (CLI) | payer MEDICARE ==
[2021-03-26 04:00] VITALS: BP 141/72
[~2021-04-08] MED LIST changes: +PRED50TA PO
--- NOTE | 2021-04-08 10:45 | RAD ---
EXAM: XR SHOULDER_LEFT 2+ VIEWS 04/08/2021 10:26 AM CLINICAL INDICATION: Left shoulder pain. Prior left shoulder surgery. COMPARISON: None TECHNIQUE: AP internal and external rotation views and scapular Y view of the left shoulder. FINDINGS: No acute fracture. Alignment is normal. Type II acromion. Mild acromioclavicular degenerat omar joint disease. There is a 2 cm linear calcification or chronic osseous fragment along the anterio r supraspinatus footprint, possibly calcific tendinitis or sequela of old injury. The subacromial spa ce is maintained. IMPRESSION: 1. 2 cm linear calcification along the anterior supraspinatus footprint could be calcific tendinitis or sequela of old injury. 2. Mild acromioclavicular degenerative joint disease. Electronically signed by: Ledy Pena MD (04/08/2021 10:43 AM) [id number]
== END ==
LOC: RAD 10:19
PROVIDERS: ATTEND Family Medicine
DX: M19.012 Primary osteoarthritis, left shoulder (principal); M25.812 Other specified joint disorders, left shoulder
CPT/HCPCS: 73030

== ENCOUNTER → 2021-06-07 | Outpatient (CLI) | payer MEDICARE ==
[~2021-06-07] MED LIST changes: +CHOL400T36 PO; +VITAMIN C; +ZINC50TA39 PO
--- NOTE | 2021-06-08 08:27 | RAD ---
Three views left shoulder History: pain Internally and externally rotated AP of shoulder obtained, as well as "Y" view. COMPARISON: April 08, 2021 The glenohumeral relationship is normal. There is mild marginal spurring of the AC joint. There is ca lcification seen within the rotator cuff. Impression: Mild degenerative changes. No acute findings. end impression Electronically signed by: Jesse Hoyos III, MD (06/08/2021 8:25 AM) [facility]
== END ==
LOC: RAD 13:57
PROVIDERS: ATTEND Family Medicine
DX: M19.012 Primary osteoarthritis, left shoulder (principal); M75.82 Other shoulder lesions, left shoulder
CPT/HCPCS: 73030

== ENCOUNTER → 2021-06-12 | Outpatient (CLI) | payer MEDICARE ==
[~2021-06-12] MED LIST changes: +ATORVASTATIN CALCIUM PO; +MONT10TA80 PO; +Vitamin D PO; +novolog SUBCUT
== END ==
LOC: LAB 16:24
PROVIDERS: ATTEND Internal Medicine Gastroenterology
DX: Z01.812 Encounter for preprocedural laboratory examination (principal); Z12.11 Encounter for screening for malignant neoplasm of colon; U07.1 COVID-19
CPT/HCPCS: U0003

== ENCOUNTER → 2021-06-14 | Day surgery (SDC) | payer MEDICARE ==
[~2021-06-14] MED LIST changes: +IPRATRPIUM/ALBUTEROL 0.5/2.5MG 3 ML NEBU. NEB PRN; +IV RINGERS SOLUTION,LACTATED 1,000 ML IV SCH; +LIDOCAINE 2% PF 5 ML VIAL. ONE; +MIDAZOLAM HCL PF 2 MG/2 ML VIAL. IV ONE; +ONDANSETRON PF 4 MG/2 ML VIAL. IV PRN; +PROPOFOL 10,000 MCG/ML (20ML) VIAL IV ONE
[2021-06-14 10:45] VITALS: BP 130/90
== END | disposition home or self-care (01) ==
LOC: SURG 08:20
PROVIDERS: ATTEND Internal Medicine Gastroenterology
DX: Z12.11 Encounter for screening for malignant neoplasm of colon (principal); K64.8 Other hemorrhoids; E11.9 Type 2 diabetes mellitus without complications; J44.9 Chronic obstructive pulmonary disease, unspecified; F32.9 Major depressive disorder, single episode, unspecified; E66.9 Obesity, unspecified; E07.9 Disorder of thyroid, unspecified; K21.9 Gastro-esophageal reflux disease without esophagitis; E78.00 Pure hypercholesterolemia, unspecified; J45.909 Unspecified asthma, uncomplicated; Z88.0 Allergy status to penicillin; Z98.890 Other specified postprocedural states
CPT/HCPCS: 82947; G0121; J2001; J2704; J7120; 45378

== ENCOUNTER 2021-07-06 21:59 | Emergency (ER) | payer MEDICARE ==
[~2021-07-06] VITALS: Ht 188 cm; Wt 125.5 kg
[~2021-07-06 21:59] MED LIST changes: -IPRATRPIUM/ALBUTEROL 0.5/2.5MG 3 ML NEBU. NEB PRN; -IV RINGERS SOLUTION,LACTATED 1,000 ML IV SCH; -LIDOCAINE 2% PF 5 ML VIAL. ONE; -MIDAZOLAM HCL PF 2 MG/2 ML VIAL. IV ONE; -ONDANSETRON PF 4 MG/2 ML VIAL. IV PRN; -PROPOFOL 10,000 MCG/ML (20ML) VIAL IV ONE
--- NOTE | 2021-07-06 22:13 | PHYS DOC ---
Past History Past Medical History: Asthma Past Surgical History: No Surgical History Additional Past Surgical Histo: shoulder surgery Alcohol Use: None Adult General Chief Complaint Chief Complaint: FOREIGN BODY/EYES HPI HPI Patient is a 60-year-old male who presents with a chief complaint of eye irritation and redness that happened at home just before coming in while he was sitting watching TV. Denies any recent travel, traumas, illnesses, fevers, changes in vision, chest pain, shortness of breath, abdominal pain, nausea, vomiting. States he is up-to-date on tetanus. Review of Systems Review of Systems Review of systems otherwise unremarkable except noted in HPI Allergies Allergies Allergies Coded Allergies Type Severity Reaction Last Updated Verified Penicillins Allergy Intermediate 06/14/21 Yes Physical Exam Physical Exam Constitutional: Well developed, well nourished, no acute distress, non-toxic appearance. [] HENT: Normocephalic, atraumatic, bilateral external ears normal, oropharynx moist, no oral exudates, nose normal. 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 [] Skin: Warm, dry, no erythema, no rash. [] Extremities: No tenderness, no cyanosis, no clubbing, ROM intact, no edema. [] Neurologic: Alert and oriented X 3, normal motor function, normal sensory function, no focal deficits noted. [] Psychologic: Affect normal, judgement normal, mood normal. [] EKG EKG [] Radiology/Procedures Radiology/Procedures [] Heart Score C/O Chest Pain: No Risk Factors: Risk Factors: DM, Current or recent (<one month) smoker, HTN, HLP, family history of CAD, obesity. Risk Scores: Risk Factors: DM, Current or recent (<one month) smoker, HTN, HLP, family history of CAD, obesity. Course & Med Decision Making Course & Med Decision Making Patient is a 60-year-old male who presents with eye irritation Vital signs notable for hypertension. Physical exam noted above. Eye exam notable for corneal abrasion of the medial left cornea. Given pain medicine Started on erythromycin eye ointment. Discussed symptom treatment at home Advised to follow-up in the morning with his eye doctor. Gave return precautions to the ED Patient grateful, verbalized understanding and agreed with plan of discharge [] Dragon Disclaimer Dragon Disclaimer This electronic medical record was generated, in whole or in part, using a voice recognition dictation system. Departure Departure: Impression: Primary Impression: Corneal abrasion Disposition: HOME / SELF CARE / HOMELESS Condition: STABLE Referrals: JACK MANRIQUEZ MD (PCP) Patient Instructions: Eye - Corneal Abrasion Additional Instructions: Thank you for coming into the emergency department tonight and allowing us to take care of you. Please read the attached information carefully to go over things we discussed. Please continue Tylenol and ibuprofen as needed. You can use an ice pack as well. Please use your antibiotic eye ointment 6 times a day until you see your eye doctor and he continues or stops it. Please come back with new or concerning symptoms as we discussed. Scripts Erythromycin Base (Erythromycin) 1 Gm Oint...g. 0.25 CM OP Q4HRS for corneal abrasion for 5 Days, #10 MISC ~1 cm ribbon into affected eye qid for 5 days Prov: NICOLE NOVOA MD 07/06/21 NICOLE NOVOA MD Jul 06, 2021 22:13
[2021-07-06] MEDS ORDERED: TETRACAINE 0.5% OPHTH SOLUTION 4ML BOTTLE. OU ONE (22:15)
[2021-07-06] MEDS ORDERED: FLUORESCEIN 1MG EYE STRIP. OS ONE (23:00)
[2021-07-06] MEDS ORDERED: ERYT1OIN6 OP (23:22)
[2021-07-06] MEDS ORDERED: ACETAMINOPHEN 500 MG TABLET PO ONE (23:30)
[2021-07-06] MEDS ORDERED: IBUPROFEN 600 MG TABLET. PO ONE (23:30)
[2021-07-06] MEDS ORDERED: ERYTHROMYCIN 0.5% OPHTH OINTMENT 1GM TUBE. OS ONE (23:30)
[2021-07-06 23:41] VITALS: BP 146/88
== END 2021-07-06 23:45 | disposition home or self-care (01) ==
LOC: ER 21:59
DX: S05.02XA Injury of conjunctiva and corneal abrasion without foreign body, left eye, initial encounter (principal); J45.909 Unspecified asthma, uncomplicated; Z88.0 Allergy status to penicillin; X58.XXXA Exposure to other specified factors, initial encounter; Y93.89 Activity, other specified; Y92.89 Other specified places as the place of occurrence of the external cause; Y99.8 Other external cause status
CPT/HCPCS: 99284